=== PATIENT | male | born 2000 | race Hispanic/Latino ===

== ENCOUNTER 2020-04-08 12:36 | Emergency (ER) | payer SELFPAY ==
[~2020-04-08] VITALS: Ht 172.7 cm; Wt 78.9 kg
[2020-04-08] MEDS ORDERED: HYDROCODONE/APAP 7.5MG-325MG 1 EA TAB PO PRN (13:00)
== END 2020-04-08 14:19 | disposition home or self-care (01) ==
LOC: ER 13:07
DX: S93.692A Other sprain of left foot, initial encounter (principal); W23.1XXA Caught, crushed, jammed, or pinched between stationary objects, initial encounter; Y99.0 Civilian activity done for income or pay; I42.9 Cardiomyopathy, unspecified
CPT/HCPCS: 99283